=== PATIENT | female | born 1970 | race Caucasian/White ===

== ENCOUNTER → 2024-02-25 14:01 | Outpatient (REF) | payer BC, SELFPAY | LOC: DHCBS MAIN 14:01 | PROVIDERS: ATTENDING PHYSICIAN Internal Medicine Cardiovascular Disease; FAMILY PHYSICIAN Physician Assistant | DX: R94.31 Abnormal electrocardiogram [ECG] [EKG] (principal) | CPT/HCPCS: 93306 ==

== ENCOUNTER → 2024-03-10 16:42 | Outpatient (REF) | payer BC, SELFPAY | LOC: HWWDC 16:42 | PROVIDERS: ATTENDING PHYSICIAN Physician Assistant | DX: Z12.31 Encounter for screening mammogram for malignant neoplasm of breast (principal) | CPT/HCPCS: 77063; 77067 ==

== ENCOUNTER → 2025-03-25 16:03 | Outpatient (REF) | payer BC, SELFPAY | LOC: HWWDC 16:03 | PROVIDERS: ATTENDING PHYSICIAN Physician Assistant | DX: Z12.31 Encounter for screening mammogram for malignant neoplasm of breast (principal) | CPT/HCPCS: 77063; 77067 ==